=== PATIENT | male | born 1985 | race Caucasian/White ===

== ENCOUNTER 2021-09-17 12:17 | Emergency (ER) | payer OTHER, SELFPAY ==
--- NOTE | ~2021-09-17 | XR_ITS ---
XR chest 2V DATE: 09/17/2021 12:59 INDICATION: Chest pain, left chest pressure, dizziness TECHNIQUE: PA and lateral views COMPARISON: None FINDINGS: Normal heart size. No hilar or mediastinal enlargement. No pulmonary infiltrate or consolid ation, pleural effusion or pulmonary vascular congestion or pneumothorax. IMPRESSION: Negative Reviewed, dictated and finalized at location [facility]. [facility] IMPRESSION: Negative
[2021-09-17 12:23] VITALS: BP 163/95; PULSE 104; RESP 19; TEMP 36.7; O2SAT 97
--- NOTE | 2021-09-17 12:24 | ECG_ITS ---
Measurements Intervals [place] Rate: 96 P: 50 OH: 146 QRS: -8 QRSD: 96 T: 45 QT: 323 QTc: 410 Interpretive Statements SINUS RHYTHM POSSIBLE LEFT ATRIAL ENLARGEMENT [-0.1mV P-WAVE IN V1/V2] BORDERLINE ECG NO PREVIOUS ECG AVAILABLE FOR COMPARISON Electronically Signed On 09-17-2021 14:10:19 DESK OFFICER by Grayson Bazan M.D.
[2021-09-17 12:57] LABS: Basophils Percent Auto 0.3 % (0.2-1.2); Eosinophils Absolute Auto 0.1 K/mm3 (0-0.3); Eosinophils Percent Auto 1.1 % (0-4.4); Hematocrit 51.3 % (42.0-52.0); Hemoglobin 17.4 g/dL (14.0-18.0); Immature Granulocyte Absolute 0.05 K/mm3 (0.00-0.031); Immature Granulocyte Percent A 0.5 % (0-0.5); Lymphocytes Absolute Auto 2.68 K/mm3 (0.9-3.2); Lymphocytes Percent Auto 27.8 % (18.3-44.2); Mean Corpuscular HGB Conc 33.9 g/dl (32-36); Mean Corpuscular Hemoglobin 32.5 pg (26-34); Mean Corpuscular Volume 95.7 fl (80-100); Mean Platelet Volume 11.2 fl (7.4-10.4); Monocytes Absolute Auto 0.8 K/mm3 (0.1-0.6); Monocytes Percent Auto 8.7 % (2.6-8.5); Neutrophils Absolute Auto 5.9 K/mm3 (1.3-6.7); Neutrophils Percent Auto 61.6 % (45.5-73.1); Platelet Count Result 201 k/mm3 (150-375); Red Blood Count 5.36 M/mm3 (4.6-6.20); Red Cell Distribution Width 12.5 % (11.5-14.5); White Blood Count 9.6 K/mm3 (4.5-10.0)
[2021-09-17] MEDS: SODIUM CHLORIDE 0.9% IV 1,000 ML 999 ML IV CONT (13:09)
[2021-09-17] MEDS: MECLIZINE HCL 25 MG TABLET PO (13:09)
[2021-09-17 13:15] LABS: Alanine Aminotransferase 102 U/L (4-50); Albumin Level 4.5 g/dL (3.5-5.1); Alkaline Phosphatase 108 U/L (38-126); Anion Gap 12 mmol/L (8-16); Aspartate Amino Transferase 82 U/L (17-59); Bilirubin,Total 0.7 mg/dL (0.2-1.3); Blood Urea Nitrogen 18 mg/dL (9-20); Calcium 8.3 mg/dL (8.4-10.2); Carbon Dioxide 21 mmol/L (22-30); Chloride 106 mmol/L (98-107); Estimated CRCL calculation 163 ml/min; Estimated Glomerular Filt Rate > 60; Glucose 124 mg/dL (65-110); Potassium 4.2 mmol/L (3.4-5.0); Sodium 139 mmol/L (137-145)
[2021-09-17 13:26] VITALS: BP 135/99; PULSE 88; RESP 18; O2SAT 99
[2021-09-17 14:40] LABS: Troponin I < 0.012 ng/mL (0.000-0.034)
[2021-09-17 14:49] VITALS: BP 138/82; PULSE 77; RESP 18; O2SAT 99
--- NOTE | 2021-09-17 16:04 | ED.GENADULT ---
HPI - General Adult General Chief complaint: Shortness of Breath/Dyspnea Stated complaint: HTN/DIZZY/SOB Time Seen by Provider: 09/17/21 12:36 History of Present Illness HPI narrative: Patient is a 36-year-old male who presents ER with multiple issues. Main issue is that patient has had some dizziness today. Spinning in nature. Worse with turning his head. No ringing in the ears. No sinus congestion. No history of previous symptoms. Denies sweats or nausea/vomiting. Patient reports with this he had some mild chest that was left-sided and short-lived. No history of coronary disease. No upper or lower extremity weakness. Related Data Home Medications Medication Instructions Recorded Confirmed amlodipine 10 mg PO DAILY 09/17/21 09/17/21 metoprolol tartrate 12.5 mg PO BID 09/17/21 09/17/21 Allergies Allergy/AdvReac Type Severity Reaction Status Date / Time No Known Allergies Allergy Verified 09/17/21 12:18 Review of Systems Review of Systems: All systems reviewed & are unremarkable except as noted in HPI and below Constitutional: Constitutional: Denies chills, Denies fever(s) and Denies weakness Eyes: Eyes: Denies change in vision ENT: Reports dizziness, Denies nasal congestion and Denies sore throat Cardiovascular: Cardiovascular: Reports chest pain, Denies rapid heart rate and Denies radiating jaw, neck or arm pain Respiratory: Respiratory: Denies cough, Reports dyspnea and Denies wheezing Gastrointestinal: Gastrointestinal: Denies abdominal pain, Denies nausea and Denies vomiting Neurologic: Reports vertigo, Denies syncope, Denies headache(s), Denies focal weakness and Denies numbness PMFSH Past Medical History Medical History (Updated 09/17/21 @ 21:40 by Baldev Hills MD) Hypertension Surgical History Surgical History (Updated 09/17/21 @ 21:40 by Baldev Hills MD) No pertinent past surgical history Social History Social History (Updated 09/17/21 @ 21:41 by Baldev Hills MD) Smoking status: Never smoker Exam Narrative: GENERAL: Well-appearing, well-nourished, and in no acute distress. HEAD: Normocephalic, atraumatic. EYES: PERRL and EOMI. No nystagmus ENT: Mucous membranes moist. TMs normal bilaterally. CHEST: Clear to auscultation. No respiratory distress. HEART: Regular rate and rhythm. Normal peripheral pulses. ABDOMEN: Soft, nontender, nondistended. EXTREMITIES: Normal range of motion. No edema. SKIN: Warm, dry, no rash. NEURO: No focal deficits. No upper or lower extremity drift. Normal finger-nose testing and [id number] testing. Cranial nerves II through XII intact. Alert and oriented x3. Course Course Emergency Course: Feels much better after fluids and meclizine. Discharge home with meclizine as well. Vital Signs Vital signs: Vital Signs Temperature 98.1 F 09/17/21 12:23 Pulse Rate 104 H 09/17/21 12:23 Respiratory Rate 19 09/17/21 12:23 Blood Pressure 163/95 H 09/17/21 12:23 Pulse Oximetry 97 09/17/21 12:23 Temperature 98.1 F 09/17/21 12:23 Pulse Rate 85 09/17/21 16:18 Respiratory Rate 20 09/17/21 16:18 Blood Pressure 133/99 H 09/17/21 16:18 Pulse Oximetry 98 09/17/21 16:18 Medical Decision Making Vital Signs Vital Signs: Vital Signs Temperature 98.1 F 09/17/21 12:23 Pulse Rate 104 H 09/17/21 12:23 Respiratory Rate 19 09/17/21 12:23 Blood Pressure 163/95 H 09/17/21 12:23 Pulse Oximetry 97 09/17/21 12:23 Temperature 98.1 F 09/17/21 12:23 Pulse Rate 85 09/17/21 16:18 Respiratory Rate 20 09/17/21 16:18 Blood Pressure 133/99 H 09/17/21 16:18 Pulse Oximetry 98 09/17/21 16:18 Lab Data Result diagrams: 09/17/21 12:44 09/17/21 12:44 Labs: Lab Results 09/17/21 09/17/21 09/17/21 Range/Units 12:44 12:44 12:44 WBC 9.6 (4.5-10.0) K/mm3 RBC 5.36 (4.6-6.20) M/mm3 Hgb 17.4 (14.0-18.0) g/dL Hct 51.3 (42.0-52.0) % MCV 95
[2021-09-17 16:18] VITALS: BP 133/99; PULSE 85; RESP 20; O2SAT 98
== END 2021-09-17 16:19 | disposition home or self-care (01) ==
PROVIDERS: Emergency Medicine; Emergency Provider Emergency Medicine
DX: H81.399 Other peripheral vertigo, unspecified ear (principal); I10 Essential (primary) hypertension
CPT/HCPCS: 36415; 71046; 80053; 84484; 85025; 93005; 96360; 99284; A9270; J7030